=== PATIENT | female | born 1955 | race Caucasian/White ===

== ENCOUNTER 2016-10-12 13:40 | Inpatient (IN) ==
[2016-10-12 14:28] LABS: Basophils % 0.3 % (0.0-0.8); Eosinophils % 0.1 % (0.00-10.9); Hematocrit 38.1 VOL% (35.7-47.0); Hemoglobin 13.5 GM/DL (12.0-16.0); Immature Granulocytes % 0.5 %; Immature Granulocytes Absolute 0.08 #; Lymphocytes # 2.6 10*3/uL (1.4-4.0); Lymphocytes % 16.5 % (21.3-54.2); Mean Corpuscular HGB Conc 35.4 GM/DL (32-36); Mean Corpuscular Hemoglobin 30 PG (27-34); Mean Corpuscular Volume 85.2 FL (87-102); Mean Platelet Volume 10.9 FL (9.6-12.0); Monocytes # 1.3 10*3/uL (0.11-0.8); Monocytes % 8.1 % (1.7-12.7); Neutrophils # 11.7 10*3/uL (1.4-7.4); Neutrophils % 74.5 % (38.7-73.9); Platelet Count 127 T/CUMM (130-400); Red Blood Count 4.47 MC/CUMM (3.8-5.5); Red Cell Distribution Width 17.1 % (9.3-17.3); White Blood Count 15.7 T/CUMM (4-12)
[2016-10-12 14:53] LABS: Bilirubin,Total 8.5 MG/DL (0.2-1.0); Calcium 8.4 MG/DL (8.5-10.1); Total Protein 6.9 G/DL (6.4-8.3)
[2016-10-12 14:54] LABS: Albumin 2.9 G/DL (3.4-5.0); Magnesium 1.3 MG/DL (1.8-2.4); Osmolality,Calculated 264.5 MOS/KG (273-304); Potassium 3.2 MMOL/L (3.5-5.1)
[2016-10-12 15:44] LABS: Hepatitis A Ab IgM Quant < 0.02 Index; Hepatitis A Ab IgM Result Negative (Negative); Hepatitis B Core IgM Quant 0.21 Index; Hepatitis B Surface Ag Quant < 0.10 Index; Hepatitis B Surface Ag Result Negative (Negative)
[2016-10-12 15:45] LABS: Hepatitis B Core IgM Result Negative (Negative); Hepatitis C Virus Ab Quant > 11.00 Index; Hepatitis C Virus Ab Result Positive (Negative)
--- NOTE | 2016-10-12 15:54 | Emergency Department Note ---
Nilesh Young Brittany, am scribing for, and in the presence of, Brodie Talbot MD 14:06. Dahiana Young Phillip K, MD, personally performed the services described in this documentation, ascribed by Lolita Galloway in my presence, and it is both accurate and complete [id number] . Arrival - Arrival Chief Complaint: Non-Specific Stated Complaint: ABNORMAL LABS ED Nursing Triage Note: C/O BEING EVALUATED ON 10/05/16 AND TOLD THAT HAD ABNORMAL LIVER FUNCTIONS , STATES TODAY HAVING A SEVERE PANIC ATTACK AND DEPRESSION OVER HER ABNORMAL LAB WORK, RIGHT LEG FROM FOOT TO BELOW KNEE IN A CAST - PATIENT STATES SHE TRIPPED APX.1 MONTH AGO Mode of Arrival: Stretcher Limitations: No Limitations Source: Patient, RN Notes Reviewed Time Seen by Provider: 10/12/16 13:52 - History of Present Illness HPI Narrative: Ms. Benson is a 61 y/o white female presenting to the ED for further evaluation of elevated liver enzymes. Patient reports that she had lab work performed by PCP Dr. Dick about a week ago which showed elevated liver enzymes. Today she has presented after becoming increasingly anxious about these lab results and presents for further evaluation to see what the possible cause could be. Per records patient was seen here about 8 days ago and had a bilirubin of 8.1. Patient notes a history of ETOH use, denies heavy use but reports that when she did use she drank hard liquor such as Vodka every other day. Patient ceased use about a month ago and during this time she also stopped taking her Clonazepam. Patient has a cast to her RLE s/p ankle fracture about a month ago. She states that she cannot remember mechanism of fall that occurred, and then goes on to state she fell at her house. Patient has a history of severe Anxiety and panic attacks. She denies IV drug abuse. Patient has no other complaint/pain. Onset (ago): hour(s) Consistency: constant Allergies/Adverse Reactions: Allergies Allergy/AdvReac Type Severity Reaction Status Date / Time Unable to Obtain Allergy Unverified 07/04/16 19:13 Home Medications: Home Medications Medication Instructions Recorded Confirmed Type Buspirone HCl [Buspirone HCl] 10 mg PO TID 10/04/16 10/04/16 History Escitalopram [Lexapro] 10 mg PO QAM 10/04/16 10/04/16 History clonazePAM [Clonazepam] 2 mg PO BID 10/04/16 10/04/16 History Review of System - Review of System 12 point system: reviewed and no additional remarkable complaints except as stated - Review of System Constitutional: Present: as per HPI. Absent: chills, fever Eyes: Absent: vision change Head/Ears/Nose/Throat: Absent: nasal drainage, sore throat Cardiovascular: Absent: chest pain, palpitations Gastrointestinal: Absent: abdominal pain, nausea, vomiting, diarrhea, constipation Genitourinary female: Absent: dysuria, frequency, urgency Musculoskeletal: Absent: arm pain, back pain, leg pain, neck pain Skin: Absent: rash Neurological: Absent: headache Psychiatric: Absent: anxiety, depression Hematological/Lymphatic: Absent: easy bleeding, easy bruising Medical,Surgical,& Family Hx - Medical History Psychological: History of: Anxiety Disorders, Depression - Surgical History Surgical History: noncontributory - Family History Family History: noncontributory - Social History Smoking Status: Smoker, status unknown Frequency of Alcohol Use: Occasionally Type of Drug Use: None Exam Vital Signs: Vital Signs Temperature 98.8 F 10/12/16 14:45 Pulse Rate 112 H 10/12/16 15:00 Respiratory Rate 20 10/12/16 15:00 Blood Pressure 172/67 10/12/16 15:00 O2 Sat by Pulse Oximetry 98 10/12/16 15:00 - General General appearance: alert, in no apparent distress - Head Head exam: Present: atraumatic, normocephalic, normal inspection - Eye Eye exam: Present: normal appearance, PERRL, EOMI - ENT ENT exam: Present: normal exam, normal oropharynx - Neck Neck exam: Present: normal inspection, full ROM, trachea midline - Chest Chest inspection: Present: normal inspection, symmetric chest wall rise - Respiratory Respiratory exam: Present: normal lung sounds bilaterally - Cardiovascular Cardiovascular exam: Present: regular rate, normal rhythm, normal heart sounds - Abdominal Exam Abdominal exam: Present: soft, normal bowel sounds. Absent: distention, tenderness, mass (no liver enlargement) - Extremities Exam Extremities exam: Present: normal inspection - Back Exam Back exam: Present: normal inspection - Neurological Exam Neurological exam: Present: alert, oriented X3, CN II-XII intact. Absent: motor sensory deficit - Psychiatric Psychiatric exam: Present: normal affect, normal mood - Skin Skin exam: Present: warm, dry, intact, normal color Course Course Narrative: Patient discussed with the hospitalist. Results - Labs CBC & BMP: 10/12/16 14:19 10/12/16 14:19 Lab Results: I have reviewed the patients labs Labs: Laboratory Tests 10/12/16 14:19 WBC 15.7 H RBC 4.47 Hgb 13.5 Hct 38.1 MCV 85.2 L MCH 30 MCHC 35.4 RDW 17.1 Plt Count 127 L MPV 10.9 Neut % (Auto) 74.5 H Lymph % (Auto) 16.5 L Ferry % (Auto) 8.1 Eos % (Auto) 0.1 Baso % (Auto) 0.3 Neut # (Auto) 11.7 H Lymph # (Auto) 2.6 Ferry # (Auto) 1.3 H Eos # (Auto) 0.0 Baso # (Auto) 0.0 Immature Gran % 0.5 Nucleated RBC % 0.0 Immature Gran # 0.08 Nucleated RBCs # 0.00 Laboratory Tests 10/12/16 14:19 Sodium 132 L Potassium 3.2 L Chloride 95 L Carbon Dioxide 24 Anion Gap 16.2 H BUN 6 L Creatinine 0.80 GFR Calculation 86 BUN/Creatinine Ratio 7.00 Glucose 150 H Calculated Osmolality 264.5 L Calcium 8.4 L Magnesium 1.3 L Total Bilirubin 8.50 H AST 41 H ALT 72 H Alkaline Phosphatase 240 H Total Protein 6.9 Albumin 2.9 L Globulin 4.0 H Albumin/Globulin Ratio 0.7 L Lipase 141.0 Disposition Clinical Impression: Alcoholic liver disease, Hyponatremia, Hypokalemia, Probable cirrhosis Case discussed with: patient Disposition: Still a Patient Condition: Guarded Additional Instructions: Admit to the hospitalist.
[2016-10-12] MEDS ORDERED: SODIUM CHLORIDE 0.9% 1,000 ML IV STA (15:56)
[2016-10-12] MEDS ORDERED: POTASSIUM CHLORIDE 20 MEQ TABLET PO STA (15:57)
[2016-10-12] MEDS ORDERED: POTASSIUM CHLORIDE 20 MEQ TABLET PO ONE (15:58)
[2016-10-12] MEDS ORDERED: SODIUM CHLORIDE 0.9% 1,000 ML IV SCH (16:00)
[2016-10-12] MEDS ORDERED: ONDANSETRON 4 MG/2 ML VIAL ONE (16:04)
[2016-10-12] MEDS ORDERED: ONDANSETRON 4 MG/2 ML VIAL IV STA (16:08)
--- NOTE | 2016-10-12 16:14 | Hospitalist History & Physical ---
Assessment and Plan (1) Alcohol addiction Status: Acute Assessment and plan: The patient reports last drink on late last week. She is in the window frame for delirium tremens. We will start CIWA precautions and monitor. Current Visit: Yes (2) Alcoholic liver disease Status: Acute Assessment and plan: We will obtain liver ultrasound and consult GI for evaluation. Current Visit: Yes (3) Hypokalemia Status: Acute Assessment and plan: Potassium 3.2; will correct and re-check in AM. Current Visit: Yes (4) Hyponatremia Status: Resolved Assessment and plan: Sodium 132; will start IV fluids; will re-check in AM. Current Visit: Yes History of Present Illness Chief complaint: elevated liver enzymes/anxiety History of present illness: This is a very unfortunate 61 y/o white female presenting to the ED at [facility] for further evaluation of elevated liver enzymes. The patient has a medical history significant for alcohol abuse, anxiety, and depression. The patient reports that she was recently seen by her PCP, Dr. Dick. She reported that she was told that her liver enzymes were elevated during that visit. The patient was recently seen her on 10/04 seeking assistance with alcohol detoxification. At that time, the patient had been recently released from [place] for alcohol abuse. Labs were obtained; which revealed hepatic abnormalities with a bilirubin noted at 8.1. She was advised to refrain from drinking at time. Today, she presented back to the ED verbalizing concerns regarding her liver enzymes. She presented anxious and tremulous. She reported her last drink to Dr. Talbot on last month; however disclosed to me that her last drink was on last week. Labs were obtained which were significant for leukocytosis with a white blood cell count at 15.7, hyponatremia with a sodium of 132, hypokalemia with a sodium of 3.2, hypomagnesmia with a magnesium of 1.3. Hepatic function panel was obtained which reported an AST of 41, ALT of 72, alkaline phosphatase of 240, and total bilirubin of 8.5. After brief discussion with both Dr. Talbot and , the patient will be admitted to the hospitalist services for continuation of care. Home Medications Medication Instructions Recorded Confirmed Type Buspirone HCl [Buspirone HCl] 10 mg PO TID 10/04/16 10/04/16 History Escitalopram [Lexapro] 10 mg PO QAM 10/04/16 10/04/16 History clonazePAM [Clonazepam] 2 mg PO BID 10/04/16 10/04/16 History Allergies Allergy/AdvReac Type Severity Reaction Status Date / Time Unable to Obtain Allergy Unverified 07/04/16 19:13 Medical,Surgical,& Family Hx - Medical History Psychological: History of: Anxiety Disorders, Depression - Social History Smoking Status: Smoker, status unknown Frequency of Alcohol Use: Occasionally Type of Drug Use: None Exam - Constitutional Vitals: Period Temp Pulse Resp BP Sys/Puga Pulse Ox Last 24 Hr 98.8 F-98.8 F 94-120 20-20 172-194/67-104 98-100 General appearance: mild distress - Head Head exam: Present: normal inspection, normocephalic, atraumatic - Eye Eye exam: Present: EOMI, conjunctival injection. Absent: nystagmus Pupils: Present: TOBIN, normal accommodation - ENT ENT exam: Present: normal exam, normal external ear exam, normal oropharynx - Neck Neck exam: Present: normal inspection. Absent: lymphadenopathy, meningismus, thyromegaly - Respiratory Respiratory exam: Present: clear to auscultation bilaterally. Absent: rales, rhonchi, stridor, wheezes - Cardiovascular Cardiovascular exam: Present: regular rate and rhythm. Absent: carotid bruit, diastolic murmur, gallop, JVD, rubs, systolic murmur - GI/Abdominal GI/Abdominal exam: Present: normal bowel sounds, soft - Extremities Exam Extremities exam: Present: other (cast to right lower leg) - Back Exam Back exam: Present: normal inspection - Neurological Exam Neurological exam: Present: alert, oriented X3 - Psychiatric Psychiatric exam: Present: agitated, anxious - Skin Skin exam: Present: normal color, warm, dry Results - Labs CBC & BMP: 10/12/16 14:19 10/12/16 14:19 Lab Results: I have reviewed the past 24 hour labs
[2016-10-12] MEDS ORDERED: ONDANSETRON 4 MG/2 ML VIAL IV PRN (17:16)
[2016-10-12] MEDS: SODIUM CHLORIDE 0.9% 1,000 ML IV SCH (17:41)
[2016-10-12] MEDS: LORazepam 1 MG TABLET PO PRN (18:24)
[2016-10-12] MEDS: POTASSIUM CHLORIDE 20 MEQ TABLET PO SCH ×2 (18:24→21:45)
[2016-10-12] MEDS: ENOXAPARIN 40 MG/0.4 ML SYRINGE SUBCUT SCH (18:38)
[2016-10-12] MEDS: clonazePAM 0.5 MG TABLET PO SCH (21:45)
[2016-10-13] MEDS: LORazepam 1 MG TABLET PO PRN ×3 (02:07→22:30)
[2016-10-13] MEDS: POTASSIUM CHLORIDE 20 MEQ TABLET PO SCH (02:07)
[2016-10-13 06:45] LABS: Albumin 2.4 G/DL (3.4-5.0); Bilirubin,Total 6.3 MG/DL (0.2-1.0); Magnesium 1.8 MG/DL (1.8-2.4); Osmolality,Calculated 275.5 MOS/KG (273-304); Potassium 4.6 MMOL/L (3.5-5.1); Total Protein 5.6 G/DL (6.4-8.3)
[2016-10-13 07:11] LABS: Basophils # 0.1 10*3/uL (0.0-0.2); Basophils % 0.5 % (0.0-0.8); Eosinophils % 0.4 % (0.00-10.9); Hematocrit 33.7 VOL% (35.7-47.0); Hemoglobin 11.4 GM/DL (12.0-16.0); Immature Granulocytes % 0.2 %; Immature Granulocytes Absolute 0.02 #; Lymphocytes # 4.9 10*3/uL (1.4-4.0); Lymphocytes % 49.4 % (21.3-54.2); Mean Corpuscular HGB Conc 33.8 GM/DL (32-36); Mean Corpuscular Hemoglobin 30 PG (27-34); Mean Corpuscular Volume 88.7 FL (87-102); Mean Platelet Volume 11.5 FL (9.6-12.0); Monocytes % 9.7 % (1.7-12.7); Neutrophils % 39.8 % (38.7-73.9); Red Cell Distribution Width 18.3 % (9.3-17.3)
[2016-10-13 07:19] LABS: Platelet Count 85 T/CUMM (130-400)
[2016-10-13 07:46] LABS: Hypochromasia 1+
[2016-10-13 07:47] LABS: Platelet Estimate Decreased
--- NOTE | 2016-10-13 08:46 | Gastrointestinal Consult Note ---
<Funmilayo Wells - Last Filed: 10/13/16 08:42> Assessment and Plan (1) Elevated liver enzymes Status: Acute Assessment and plan: 10/13-Recent findings of elevated LFT with findings of Hepatitis C antibodies. Long history of ETOH use without any other associated symptoms. Obtain abdominal US today. Plan and addendum to follow by Dr Diane. Current Visit: Yes History of Present Illness Chief complaint: Elevated liver enzymes History of present illness: Ms. Benson is a 61 year old female who presented to the emergency room with complaints of anxiety related to findings of elevated liver enzymes on last week. Patient is a fair historian therefore information is also obtained from chart review. Patient states that she went to see Dr. Dick last week for an evaluation due to not feeling well. She states that that time she was found to have elevated liver enzymes and told that she was positive for hepatitis C. she states she was then told to follow-up with a specialist and sent home. Patient has a long history of alcohol use. She states that she has drank heavily off and on for many years however would not determine the exact number of years she has drank. She initially reported that her last drink was a month ago however she also reports that her last drink was several days ago. She is noted to have come to the emergency room on 10/04 with request for assistance with detox. She apparently have been discharged from [facility] on September 11 after inpatient stay for alcohol abuse however states that shortly after this she began drinking again. She denies any history of IV drug use or other illicit drugs. She denies any recent fever, chills, night sweats, weight loss, abdominal pain. She states that she does have some episodes of nausea but denies any vomiting. She denies any notice of yellowing of her skin, eyes, or darkened urine recently. She was found on admission to have a bilirubin of 8.5 , AST 41, ALT 72 and alkaline phosphatase 240. Bilirubin is down today at 6.3. She is noted to be positive for hepatitis C antibodies. Ammonia level noted at 42. No overt signs of DTs noted at this time. Home Medications Medication Instructions Recorded Confirmed Type Escitalopram [Lexapro] 10 mg PO QAM 10/04/16 10/12/16 History Allergies Allergy/AdvReac Type Severity Reaction Status Date / Time No Known Allergies Allergy Verified 10/12/16 17:33 Medical,Surgical,& Family Hx - Medical History Psychological: History of: Anxiety Disorders, Depression Musculoskeletal: History of: Musculoskeletal Problems (splint noted on right foot up to the knee) - Social History Smoking Status: Smoker, status unknown Frequency of Alcohol Use: Occasionally Type of Drug Use: None 12 point system: reviewed and no additional remarkable complaints except as stated - Constitutional Constitutional: Present: as per HPI - EENT Eyes: Present: as per HPI Ears: Present: as per HPI Nose, mouth and throat: Present: as per HPI - Cardiovascular Cardiovascular: Present: as per HPI - Respiratory Respiratory: Present: as per HPI - Gastrointestinal Gastrointestinal: Present: as per HPI, nausea - Genitourinary Genitourinary: Present: as per HPI - Musculoskeletal Musculoskeletal: Present: as per HPI - Neurological Neurological: Present: as per HPI - Psychiatric Psychiatric: Present: as per HPI, anxiety, panic attacks, other (History of EtOH use) - Endocrine Endocrine: Present: as per HPI - Hematologic/Lymphatic Hematologic/Lymphatic: Present: as per HPI Exam - Constitutional Vitals: Period Temp Pulse Resp BP Sys/Puga Pulse Ox Last 24 Hr 98.4 F-98.9 F 73-120 20-20 103-194/54-104 94-100 General appearance: no acute distress, over weight - Head Head exam: Present: normal inspection, normocephalic - Eye Eye exam: Present: other (Lids and conjunctive are unremarkable). Absent: scleral icterus - ENT ENT exam: Present: normal exam, normal oropharynx - Neck Neck exam: Present: normal inspection - Respiratory Respiratory exam: Present: clear to auscultation bilaterally. Absent: rales, rhonchi, wheezes - Cardiovascular Cardiovascular exam: Present: regular rate and rhythm. Absent: diastolic murmur , JVD, systolic murmur - GI/Abdominal GI/Abdominal exam: Present: normal bowel sounds, soft. Absent: ascites, distended, mass, organomegaly, tenderness - Extremities Exam Extremities exam: Present: normal inspection, full ROM - Back Exam Back exam: Present: normal inspection - Neurological Exam Neurological exam: Present: alert, oriented X3 - Psychiatric Psychiatric exam: Present: normal affect, normal mood - Skin Skin exam: Present: normal color, warm, dry Results - Labs CBC & BMP: 10/13/16 06:54 10/13/16 04:22 Lab Results: I have reviewed the past 24 hour labs <Dean Diane - Last Filed: 10/13/16 19:06> History of Present Illness History of present illness: Ms. Benson is a 61 year old female Exam - Constitutional Vitals: Period Temp Pulse Resp BP Sys/Puga Pulse Ox Last 24 Hr 97.9 F-99.2 F 70-105 20-20 103-156/54-78 94-99 Results - Labs CBC & BMP: 10/13/16 06:54 10/13/16 04:22
[2016-10-13] MEDS ORDERED: PANTOPRAZOLE 40 MG TABLET PO SCH (09:00)
--- NOTE | 2016-10-13 09:27 | Hospitalist Progress Note ---
Assessment and Plan (1) Alcohol addiction Status: Acute Assessment and plan: The patient reports last drink on late last week. She is in the window frame for delirium tremens. We will start CIWA precautions and monitor. 10/13-No overt signs and symptoms; will continue to monitor. Current Visit: Yes (2) Alcoholic liver disease Status: Acute Assessment and plan: We will obtain liver ultrasound and consult GI for evaluation. 10/13-Seen per GI; agree with plan of u/s abdomen. Current Visit: Yes (3) Hypokalemia Status: Acute Assessment and plan: Potassium 3.2; will correct and re-check in AM. 10/13-Potassium at 3.5 today; will re-check in AM. Current Visit: Yes (4) Hyponatremia Status: Resolved Assessment and plan: Sodium 132; will start IV fluids; will re-check in AM. 10/14-Sodium 135 today; will re-check in AM. Current Visit: Yes (5) HCV antibody positive Status: Acute Assessment and plan: Patient informed of findings; will obtain HCV RNA today. Current Visit: Yes (6) Decreased platelet count Status: Acute Assessment and plan: Platelet count decreased dramatically since admission 85 today down from 127 on yesterday. No obvious bleeding noted. Will monitor. This is likely related to her impaired hepatic functioning. Current Visit: Yes (7) Elevated liver enzymes Status: Acute Assessment and plan: Noted improvement in LFT's; AST at 33 down from 41, ALT at 48 down from 72, Alkaline Phosphatate at 140 from 240, and total bilirubin at 6.3 from 8.5 on yesterday. Ammonia level was obtained which was noted at 42. We will continue to monitor. Current Visit: Yes (8) Ankle fracture, right Status: Acute Assessment and plan: Patient was seen her for this right ankle fracture, a cast was applied; however the patient did not follow-up with her ortho follow-up. We will consult ortho to evaluate. Current Visit: Yes Hospitalist: Subjective Interval history: Patient seen and examined. Chart reviewed. Labs reported +HCV antibody; patient informed. Will obtain HCV RNA this morning. Seen by GI; abdominal ultrasound this AM. Exam - Constitutional Vitals: Period Temp Pulse Resp BP Sys/Puga Pulse Ox Last 24 Hr 98.4 F-98.9 F 73-120 20-20 103-194/54-104 94-100 General appearance: normal weight, no acute distress - Head Head exam: Present: normal inspection, normocephalic, atraumatic - Eye Eye exam: Present: EOMI. Absent: conjunctival injection, nystagmus Pupils: Present: TOBIN, normal accommodation - ENT ENT exam: Present: normal exam, normal external ear exam, normal oropharynx - Neck Neck exam: Present: normal inspection. Absent: lymphadenopathy, meningismus, tenderness, thyromegaly - Respiratory Respiratory exam: Present: clear to auscultation bilaterally. Absent: rales, rhonchi, stridor, wheezes - Cardiovascular Cardiovascular exam: Present: regular rate and rhythm, systolic murmur. Absent : bradycardia, carotid bruit, diastolic murmur, gallop, JVD, rubs, tachycardia - GI/Abdominal GI/Abdominal exam: Present: normal bowel sounds, soft - Extremities Exam Extremities exam: Present: other (cast to R foot noted; pulses noted) - Back Exam Back exam: Present: normal inspection - Neurological Exam Neurological exam: Present: alert, oriented X3 - Psychiatric Psychiatric exam: Present: flat affect - Skin Skin exam: Present: dry, other (jaundice) Results - Labs CBC & BMP: 10/13/16 06:54 10/13/16 04:22 Lab Results: I have reviewed the past 24 hour labs
[2016-10-13 10:29] LABS: HIV Antigen/Antibody Result Nonreactive (Nonreactive)
[2016-10-13] MEDS: clonazePAM 0.5 MG TABLET PO SCH ×2 (10:47→20:19)
[2016-10-13] MEDS: ESCITALOPRAM 10 MG TABLET PO SCH (10:47)
[2016-10-13] MEDS: SODIUM CHLORIDE 0.9% 1,000 ML IV SCH (10:50)
--- NOTE | 2016-10-13 11:01 | Ultrasound Report ---
US abdomen Indication: Elevated liver function studies. History of ethanol abuse. Comparison: None. Technique: Using transcutaneous probe, ultrasound imaging of the abdomen was performed. Ultrasound images were captured and stored. Interrogated structures include the liver, gallbladder, spleen, pancreas, right kidney, left kidney, aorta, and inferior vena cava. Findings: Images submitted of the pancreas demonstrate heterogeneous echotexture of the pancreas without evidence of ductal dilatation or distinct pancreatic mass. No peripancreatic fluid collection is demonstrated. Longitudinal images of the aorta and inferior vena cava demonstrate no significant abnormality. The right hepatic lobe measures up to 17-18 cm in craniocaudal dimension. Images submitted of the liver demonstrate no evidence of focal hepatic mass. Color flow is present within the interrogated portal and hepatic venous segments. Echotexture of the liver is heterogeneous in appearance. Margins may be slightly nodular. Gallbladder demonstrates increased echotexture layering dependently suggesting sludge. The gallbladder wall measures approximately 2.5 to 3 mm. No pericholecystic fluid is present. Additionally present within the gallbladder neck, there are some hyperechoic foci with posterior shadowing suggesting gallstones within the neck of the gallbladder. Common bile duct measures 4.3 mm. The right kidney measures 10.4 cm in craniocaudal dimension and otherwise demonstrates no significant abnormality. The left kidney measures 11.2 cm in craniocaudal dimension and is otherwise unremarkable. Spleen is normal in size and appearance. Impression: 1. Multiple calcified gallstones and gallbladder sludge are present. The gallbladder wall is borderline in thickness. 2. No specific abnormality of the liver is demonstrated. Additionally no specific findings to suggest portal venous hypertension. 10/13/2016 10:55 AM PROCEDURE INTERPRETED AT [facility] DEPARTMENT OF RADIOLOGY Final Report Signed by: Dr. Gregorio Galvez
--- NOTE | 2016-10-13 13:47 | XRay Report ---
XR ankle 3V RT Indication: Recent fracture, follow-up Comparison: Right ankle x-ray dated September 04, 2016 Technique: Frontal, lateral, and oblique views of the right ankle. Findings: Redemonstration of minimally displaced fracture involving the distal fibular diametaphysis. This appears unchanged. Fracture line remains visible with no significant callus formation demonstrated. Overlying splinting material obscures detail. Moderate soft tissue swelling about the lateral malleolus noted. IMPRESSION: As above. PROCEDURE INTERPRETED AT [facility] DEPARTMENT OF RADIOLOGY Final Report Signed by: Dr Dixon Swenson
[2016-10-13] MEDS: ENOXAPARIN 40 MG/0.4 ML SYRINGE SUBCUT SCH (17:10)
[2016-10-13 18:23] LABS: INR 1.3; PT Patient Result 14.2 SECS
[2016-10-14] MEDS: SODIUM CHLORIDE 0.9% 1,000 ML IV SCH ×2 (04:28→20:11)
[2016-10-14] MEDS: LORazepam 2 MG/1 ML VIAL IM PRN ×3 (04:29→22:36)
[2016-10-14 05:21] LABS: Basophils # 0.1 10*3/uL (0.0-0.2); Basophils % 0.7 % (0.0-0.8); Eosinophils # 0.1 10*3/uL (0.0-0.87); Eosinophils % 0.9 % (0.00-10.9); Hematocrit 33.2 VOL% (35.7-47.0); Hemoglobin 10.7 GM/DL (12.0-16.0); Immature Granulocytes % 0.3 %; Immature Granulocytes Absolute 0.02 #; Lymphocytes # 4.2 10*3/uL (1.4-4.0); Lymphocytes % 59.8 % (21.3-54.2); Mean Corpuscular HGB Conc 32.2 GM/DL (32-36); Mean Corpuscular Hemoglobin 30 PG (27-34); Mean Corpuscular Volume 92.7 FL (87-102); Monocytes # 0.4 10*3/uL (0.11-0.8); Monocytes % 5.9 % (1.7-12.7); Neutrophils # 2.3 10*3/uL (1.4-7.4); Neutrophils % 32.4 % (38.7-73.9); Platelet Count 86 T/CUMM (130-400); Red Blood Count 3.58 MC/CUMM (3.8-5.5); Red Cell Distribution Width 18.7 % (9.3-17.3)
[2016-10-14 05:53] LABS: Albumin 2.5 G/DL (3.4-5.0); Bilirubin,Total 4.8 MG/DL (0.2-1.0); Calcium 8.3 MG/DL (8.5-10.1); Magnesium 1.9 MG/DL (1.8-2.4); Osmolality,Calculated 276.4 MOS/KG (273-304); Phosphorous 2.2 MG/DL (2.5-4.9); Potassium 4.1 MMOL/L (3.5-5.1); Total Protein 5.7 G/DL (6.4-8.3)
[2016-10-14 05:54] LABS: Eosinophils 1 % (0-10); Hypochromasia 1+; Lymphocytes 53 % (20-55); Platelet Estimate Decreased; Segmented Neutrophils 40 % (50-85); Total Cells Counted 100
[2016-10-14] MEDS ORDERED: SODIUM CHLORIDE 0.45% 1,000 ML IV SCH (08:00)
[2016-10-14] MEDS ORDERED: DIAZEPAM 5 MG TABLET PO ONE (08:00)
--- NOTE | 2016-10-14 08:47 | Gastrointestinal Progress Note ---
<Funmilayo Wells Venkat - Last Filed: 10/14/16 08:45> Assessment and Plan (1) Elevated liver enzymes Status: Acute Assessment and plan: 10/14-bilirubin down at 4.8. For liver biopsy today. PCR pending. Plan an addendum to follow by Dr. Diane. 10/13-Recent findings of elevated LFT with findings of Hepatitis C antibodies. Long history of ETOH use without any other associated symptoms. Obtain abdominal US today. Plan and addendum to follow by Dr Diane. Current Visit: Yes Gastroenterology - PN: Subj Interval history: CC: Elevated liver enzymes Patient is seen awake and alert lying in bed. States she had a difficult night with some off-and-on episodes of upper abdominal pain. Denies any nausea or vomiting. No DT symptoms noted at present and patient denies any hallucinations. Abdomen is soft, nontender. Bilirubin is down slightly today at 4.8. She is for liver biopsy later this morning. ROS: Denies shortness of breath or chest pain Exam (Progress Note) - Constitutional Vitals: Period Temp Pulse Resp BP Sys/Puga Pulse Ox Last 24 Hr 97.6 F-99.2 F 65-82 16-20 115-143/60-78 96-99 General appearance: normal weight, no acute distress - Head Head exam: Present: normal inspection, normocephalic - Eye Eye exam: Present: other (Lids and conjunctive are unremarkable). Absent: scleral icterus - ENT ENT exam: Present: normal exam, normal oropharynx - Neck Neck exam: Present: normal inspection - Respiratory Respiratory exam: Present: clear to auscultation bilaterally. Absent: rales, rhonchi, wheezes - Cardiovascular Cardiovascular exam: Present: regular rate and rhythm. Absent: diastolic murmur , JVD, systolic murmur - GI/Abdominal GI/Abdominal exam: Present: normal bowel sounds, soft. Absent: ascites, distended, mass, organomegaly, tenderness - Extremities Exam Extremities exam: Present: normal inspection, full ROM - Back Exam Back exam: Present: normal inspection - Neurological Exam Neurological exam: Present: alert, oriented X3 - Psychiatric Psychiatric exam: Present: normal affect, normal mood - Skin Skin exam: Present: normal color, warm, dry Results - Labs CBC & BMP: 10/14/16 04:52 10/14/16 04:52 Lab Results: I have reviewed the past 24 hour labs <Dean Diane - Last Filed: 10/14/16 22:34> Exam (Progress Note) - Constitutional Vitals: Period Temp Pulse Resp BP Sys/Puga Pulse Ox Last 24 Hr 97.6 F-99.2 F 65-77 16-20 130-145/60-72 95-98 Results - Labs CBC & BMP: 10/14/16 04:52 10/14/16 04:52
--- NOTE | 2016-10-14 10:45 | Orthopedic Consult Note ---
History of Present Illness Chief complaint: Right ankle fracture History of present illness: Ms. Benson is a 61 year old female See dictated reports Home Medications Medication Instructions Recorded Confirmed Type Escitalopram [Lexapro] 10 mg PO QAM 10/04/16 10/12/16 History Allergies Allergy/AdvReac Type Severity Reaction Status Date / Time No Known Allergies Allergy Verified 10/12/16 17:33 Medical,Surgical,& Family Hx - Medical History Psychological: History of: Anxiety Disorders, Depression Musculoskeletal: History of: Musculoskeletal Problems (splint noted on right foot up to the knee) - Social History Smoking Status: Smoker, status unknown Frequency of Alcohol Use: Occasionally Type of Drug Use: None Exam - Constitutional Vitals: Period Temp Pulse Resp BP Sys/Puga Pulse Ox Last 24 Hr 97.6 F-99.2 F 65-82 16-20 115-145/60-78 96-99 Results - Labs CBC & BMP: 10/14/16 04:52 10/14/16 04:52
[2016-10-14] MEDS: NYSTATIN POWDER 15 GM BOTTLE TOP SCH ×3 (10:59→20:13)
[2016-10-14] MEDS: ESCITALOPRAM 10 MG TABLET PO SCH ×2 (10:59→15:19)
[2016-10-14] MEDS: clonazePAM 0.5 MG TABLET PO SCH ×3 (10:59→20:11)
--- NOTE | 2016-10-14 17:15 | Hospitalist Progress Note ---
Assessment and Plan (1) Alcoholic liver disease Status: Acute Current Visit: Yes (2) HCV antibody positive Status: Acute Assessment and plan: Follow-up liver biopsy. Current Visit: Yes (3) Ankle fracture, right Status: Acute Assessment and plan: Patient seen by orthopedics. See consult note. Current Visit: Yes Hospitalist: Subjective Interval history: Patient seen and examined. No acute events overnight. Case discussed with nursing staff. Labs reviewed. Case discussed with GI. Scheduled for liver biopsy today. Exam - Constitutional Vitals: Period Temp Pulse Resp BP Sys/Puga Pulse Ox Last 24 Hr 97.6 F-99.2 F 65-80 16-20 115-145/60-72 95-98 Exam: Constitutional System: Mild distress. No tremulousness. Notably anxious Head: Normocephalic, atraumatic. Ears, Nose and Throat System: No pain or tenderness. No epistaxis or discharge Eyes System: Pupils equal, round, and reactive. Extraocular muscles intact. Neck: Supple, without adenopathy, No jugular venous distention. Respiratory System: Chest clear to auscultation. Cardiovascular System: Heart with regular rate and rhythm. No murmur. GI System: Abdomen soft, nontender. Normo active bowel sounds present. Musculoskeletal System: limbs with no pedal edema. Full distal pulses. Neurological System: No discernable sensory deficit. No aphasia Psychiatric System: Conversation is rational Results - Labs CBC & BMP: 10/14/16 04:52 10/14/16 04:52
[2016-10-14] MEDS: ENOXAPARIN 40 MG/0.4 ML SYRINGE SUBCUT SCH (18:04)
--- NOTE | 2016-10-14 18:35 | Inventional Radiology Consult ---
Assessment and Plan - Time spent with patient Time spent with patient: Less than 30 minutes (1) Alcoholic liver disease Problem details: long standing, no issues with DTs this admission Status: Acute Assessment and plan: plan for liver biopsy tomorrow Current Visit: Yes (2) HCV antibody positive Problem details: new diagnosis Status: Acute Assessment and plan: plan for liver biopsy tomorrow Current Visit: Yes IR Consult - Data of Consult Patient: new to practice Consult date: 10/14/16 Requesting Physician: Dean Diane - Consult Narrative Reason for consult: probable hepatitis C and elevated bilirubin History of present illness: Kelley is a 61 year old F With long-standing history of alcoholic liver disease and probable hepatitis C. - Home Medications and Allergies Home Medications: Home Medications Medication Instructions Recorded Confirmed Type Escitalopram [Lexapro] 10 mg PO QAM 10/04/16 10/12/16 History Allergies/Adverse Reactions: Allergies Allergy/AdvReac Type Severity Reaction Status Date / Time No Known Allergies Allergy Verified 10/12/16 17:33 12 point system: reviewed and no additional remarkable complaints except as stated Medical,Surgical,& Family Hx - Medical History Psychological: History of: Anxiety Disorders, Depression Musculoskeletal: History of: Musculoskeletal Problems (splint noted on right foot up to the knee) - Social History Smoking Status: Smoker, status unknown Frequency of Alcohol Use: Occasionally Type of Drug Use: None Exam - Labs CBC & BMP: 10/14/16 04:52 10/14/16 04:52 Lab Results: I have reviewed the past 24 hour labs Labs: INR 1.3 10/13/16 17:57 Image Studies: u/s liver - Constitutional Vitals: Period Temp Pulse Resp BP Sys/Puga Pulse Ox Last 24 Hr 97.6 F-99.2 F 65-80 16-20 115-145/60-72 95-98 General appearance: over weight - Eye Eye exam: Present: EOMI - Respiratory Respiratory exam: Present: clear to auscultation bilaterally - Cardiovascular Cardiovascular exam: Present: regular rate and rhythm - GI/Abdominal GI/Abdominal exam: Present: normal bowel sounds - Neurological Exam Neurological exam: Present: alert - Psychiatric Psychiatric exam: Present: anxious, flat affect - Skin Skin exam: Present: normal color, dry
[2016-10-14] MEDS: LORazepam 1 MG TABLET PO PRN (20:11)
[2016-10-15] MEDS: LORazepam 2 MG/1 ML VIAL IM PRN (04:27)
[2016-10-15] MEDS ORDERED: SODIUM CHLORIDE 0.45% 1,000 ML IV SCH (08:00)
[2016-10-15] MEDS ORDERED: DIAZEPAM 5 MG TABLET PO ONE ×2 (08:00)
--- NOTE | 2016-10-15 08:19 | Gastrointestinal Progress Note ---
<PriscillaFunmilayo Venkat - Last Filed: 10/15/16 08:16> Assessment and Plan (1) Elevated liver enzymes Status: Acute Assessment and plan: 10/15-No repeat labs today. For liver biopsy today. Plan and addendum to follow by Dr Diane. 10/14-bilirubin down at 4.8. For liver biopsy today. PCR pending. Plan an addendum to follow by Dr. Diane. 10/13-Recent findings of elevated LFT with findings of Hepatitis C antibodies. Long history of ETOH use without any other associated symptoms. Obtain abdominal US today. Plan and addendum to follow by Dr Diane. Current Visit: Yes Gastroenterology - PN: Subj Interval history: CC: Elevated LFT Pt is seen, awake and alert lying in bed. She is tearful this morning stating she is just depressed and has a great deal of anxiety. States she did not sleep well last night due to her "nerves" and up and down to the bathroom. She complains of some vague RUQ abdominal pain as well. Denies nausea or vomiting. Abdomen is soft, tender to palpation. She is to have liver biopsy today which was postponed on yesterday due to scheduling issues. ROS: Denies SOB or chest pain Exam (Progress Note) - Constitutional Vitals: Period Temp Pulse Resp BP Sys/Puga Pulse Ox Last 24 Hr 98.0 F-100.3 F 68-71 16-20 120-152/68-80 95-99 General appearance: normal weight, no acute distress - Head Head exam: Present: normal inspection, normocephalic - Eye Eye exam: Present: other (lids and conjunctiva unremarkable). Absent: scleral icterus - ENT ENT exam: Present: normal exam, normal oropharynx - Neck Neck exam: Present: normal inspection - Respiratory Respiratory exam: Present: clear to auscultation bilaterally. Absent: rales, rhonchi, wheezes - Cardiovascular Cardiovascular exam: Present: regular rate and rhythm. Absent: diastolic murmur , JVD, systolic murmur - GI/Abdominal GI/Abdominal exam: Present: normal bowel sounds, soft. Absent: ascites, distended, mass, organomegaly, tenderness - Extremities Exam Extremities exam: Present: normal inspection, full ROM - Back Exam Back exam: Present: normal inspection - Neurological Exam Neurological exam: Present: alert, oriented X3 - Psychiatric Psychiatric exam: Present: anxious, depressed - Skin Skin exam: Present: normal color, warm, dry Results - Labs CBC & BMP: 10/14/16 04:52 10/14/16 04:52 Lab Results: I have reviewed the past 24 hour labs <Dean Diane - Last Filed: 10/15/16 19:19> Exam (Progress Note) - Constitutional Vitals: Period Temp Pulse Resp BP Sys/Puga Pulse Ox Last 24 Hr 98.2 F-100.3 F 50-79 16-22 119-158/57-80 95-100 Results - Labs CBC & BMP: 10/14/16 04:52 10/14/16 04:52
--- NOTE | 2016-10-15 08:50 | Orthopedic Progress Note ---
Orthopedics - Subjective Interval history: AFO in place no problems discharge instructions ordered. Exam - Constitutional Vitals: Period Temp Pulse Resp BP Sys/Puga Pulse Ox Last 24 Hr 98.0 F-100.3 F 68-71 16-20 120-152/68-80 95-99 Results - Labs CBC & BMP: 10/14/16 04:52 10/14/16 04:52
[2016-10-15] MEDS: clonazePAM 0.5 MG TABLET PO SCH ×2 (09:55→20:11)
[2016-10-15] MEDS: ESCITALOPRAM 10 MG TABLET PO SCH (09:55)
[2016-10-15] MEDS: NYSTATIN POWDER 15 GM BOTTLE TOP SCH ×3 (10:00→20:13)
[2016-10-15] MEDS: SODIUM CHLORIDE 0.9% 1,000 ML IV SCH (11:56)
--- NOTE | 2016-10-15 14:13 | Hospitalist Progress Note ---
Assessment and Plan (1) Alcoholic liver disease Problem details: long standing, no issues with DTs this admission Status: Acute Current Visit: Yes (2) HCV antibody positive Problem details: new diagnosis Status: Acute Current Visit: Yes (3) Ankle fracture, right Status: Acute Assessment and plan: Patient is status post liver biopsy today. I am going to check recheck her labs for tomorrow. The results of her biopsy can be related to her primary care provider. There is no reason for her to follow up with Dr. Diane. Plans are for disposition tomorrow. Current Visit: Yes Hospitalist: Subjective Interval history: Patient complaining of all over pain, depression and anxiety. Exam - Constitutional Vitals: Period Temp Pulse Resp BP Sys/Puga Pulse Ox Last 24 Hr 98.0 F-100.3 F 50-71 16-22 119-158/62-80 95-100 General appearance: over weight - Head Head exam: Present: normal inspection - ENT ENT exam: Present: normal exam - Neck Neck exam: Present: normal inspection - Respiratory Respiratory exam: Present: clear to auscultation bilaterally - Cardiovascular Cardiovascular exam: Present: regular rate and rhythm - GI/Abdominal GI/Abdominal exam: Present: hypoactive bowel sounds - Extremities Exam Extremities exam: Present: normal inspection - Back Exam Back exam: Present: normal inspection - Neurological Exam Neurological exam: Present: alert - Psychiatric Psychiatric exam: Present: depressed - Skin Skin exam: Present: normal color Results - Labs CBC & BMP: 10/14/16 04:52 10/14/16 04:52
--- NOTE | 2016-10-15 14:31 | Post Interventional Procedure ---
Pre-op diagnosis: HCV Post-op diagnosis: same Procedure: random liver biopsy Contrast: none Flouroscopy: none Radiologist: Ministerio Morris Anesthesia: local Specimens: other (three 20 ga core samples sent for path analysis) Estimated blood loss: none Complications: none Condition: stable Description/Findings: Medial right lobe of the liver was targeted for biopsy with ultrasound guidance. 3 total core samples were obtained with a 20-gauge needle. Patient tolerated the procedure well and left the procedure area in stable condition. Assessment and Plan - Time spent with patient Time spent with patient: Less than 30 minutes (1) Alcoholic liver disease Problem details: long standing, no issues with DTs this admission Status: Acute Assessment and plan: plan for liver biopsy tomorrow Current Visit: Yes (2) HCV antibody positive Problem details: new diagnosis Status: Acute Assessment and plan: plan for liver biopsy tomorrow Current Visit: Yes
--- NOTE | 2016-10-15 14:34 | Ultrasound Report ---
Ultrasound-guided liver biopsy Clinical history: History of HCV liver disease, needs staging. Physician: Dr. Morris. Procedure: Informed consent was obtained prior to the procedure. A formal timeout was performed. Maximum sterile barrier technique was used. The right lobe of the liver was examined with ultrasound and no focal hepatic lesions are identified. Therefore, a random biopsy was performed. The right upper quadrant of the abdomen was prepped and draped in a sterile fashion. Under sonographic guidance, a coaxial guide needle was advanced into the right lobe of the liver. A captured sonographic image documents the needle position within the liver. Multiple 20-gauge core biopsies were then obtained. The needle was removed and final ultrasound images showed no significant hematoma. Scant hemorrhage is noted along the biopsy tract within the liver parenchyma, as expected. The patient tolerated the procedure well and left the procedure area in stable condition. Complications: None. Estimated blood loss: Less than 5 mL. Impression: Technically successful ultrasound guided random liver biopsy. PROCEDURE INTERPRETED AT [facility] DEPARTMENT OF RADIOLOGY Final Report Signed by: Ministerio Morris
[2016-10-15] MEDS: LORazepam 1 MG TABLET PO PRN ×2 (16:48→23:11)
[2016-10-15] MEDS: ENOXAPARIN 40 MG/0.4 ML SYRINGE SUBCUT SCH (18:12)
[2016-10-16] MEDS: LORazepam 1 MG TABLET PO PRN ×4 (02:41→16:46)
[2016-10-16] MEDS: SODIUM CHLORIDE 0.9% 1,000 ML IV SCH (04:20)
[2016-10-16 05:42] LABS: Basophils % 0.7 % (0.0-0.8); Eosinophils # 0.1 10*3/uL (0.0-0.87); Eosinophils % 0.9 % (0.00-10.9); Hematocrit 33.4 VOL% (35.7-47.0); Hemoglobin 10.9 GM/DL (12.0-16.0); Immature Granulocytes % 0.2 %; Immature Granulocytes Absolute 0.01 #; Lymphocytes # 3.2 10*3/uL (1.4-4.0); Lymphocytes % 54.8 % (21.3-54.2); Mean Corpuscular HGB Conc 32.6 GM/DL (32-36); Mean Corpuscular Hemoglobin 30 PG (27-34); Mean Corpuscular Volume 92.8 FL (87-102); Mean Platelet Volume 12.1 FL (9.6-12.0); Monocytes # 0.4 10*3/uL (0.11-0.8); Monocytes % 7.5 % (1.7-12.7); Neutrophils # 2.1 10*3/uL (1.4-7.4); Neutrophils % 35.9 % (38.7-73.9); Red Cell Distribution Width 18.6 % (9.3-17.3); White Blood Count 5.9 T/CUMM (4-12)
[2016-10-16 05:44] LABS: Platelet Count 83 T/CUMM (130-400)
[2016-10-16 06:11] LABS: Eosinophils 3 % (0-10); Hypochromasia 1+; Lymphocytes 45 % (20-55); Ovalocytes Slight; Platelet Estimate Decreased; Segmented Neutrophils 42 % (50-85); Total Cells Counted 100
[2016-10-16 06:13] LABS: Albumin 2.4 G/DL (3.4-5.0); Bilirubin,Total 2.9 MG/DL (0.2-1.0); Calcium 8.1 MG/DL (8.5-10.1); Osmolality,Calculated 281.1 MOS/KG (273-304); Potassium 4.1 MMOL/L (3.5-5.1); Total Protein 5.8 G/DL (6.4-8.3)
[2016-10-16] MEDS: NYSTATIN POWDER 15 GM BOTTLE TOP SCH ×2 (09:01→16:51)
[2016-10-16] MEDS: ESCITALOPRAM 10 MG TABLET PO SCH (09:02)
[2016-10-16] MEDS: clonazePAM 0.5 MG TABLET PO SCH (09:02)
--- NOTE | 2016-10-16 09:49 | Orthopedic Progress Note ---
Assessment and Plan (1) Ankle fracture, right Status: Acute Assessment and plan: Okay for weightbearing as tolerated in the cam walker boot. No further orthopedic intervention needed at this time. Follow-up with Dr. Uribe in the office upon discharge from the hospital Current Visit: Yes Orthopedics - Subjective Interval history: Patient seen and examined. No other orthopedic complaints. Tolerating her cam walker boot Exam - Constitutional Vitals: Period Temp Pulse Resp BP Sys/Puga Pulse Ox Last 24 Hr 97.0 F-99.3 F 58-79 18-22 119-154/57-84 95-98 - Expanded Right Lower Ankle exam: Present: normal inspection (CAM Walker boot in place. Good active range of motion toes. Sensations intact. Cap refill brisk.) Results - Labs CBC & BMP: 10/16/16 05:16 10/16/16 05:16 Lab Results: I have reviewed the past 24 hour labs - Diagnostic Findings Procedure: X-ray: image reviewed by me, report reviewed by me Specialty Discharge - Follow Up or Referrals Follow up with: Presley Uribe Jr., MD [Physician] - 2 Weeks (or if in swing bed need xrays done and sent to office)
--- NOTE | 2016-10-16 10:10 | Gastrointestinal Progress Note ---
<Funmilayo Wells Venkat - Last Filed: 10/16/16 10:07> Assessment and Plan (1) Elevated liver enzymes Status: Acute Assessment and plan: 10/16-LFTs trending downward. Liver biopsy remains pending at this time as well as hep C PCR. Patient to follow-up with her PCP upon discharge. Plan an addendum to follow by Dr. Diane. 10/15-No repeat labs today. For liver biopsy today. Plan and addendum to follow by Dr Diane. 10/14-bilirubin down at 4.8. For liver biopsy today. PCR pending. Plan an addendum to follow by Dr. Diane. 10/13-Recent findings of elevated LFT with findings of Hepatitis C antibodies. Long history of ETOH use without any other associated symptoms. Obtain abdominal US today. Plan and addendum to follow by Dr Diane. Current Visit: Yes Gastroenterology - PN: Subj Interval history: CC: Elevated liver enzymes Patient is seen awake and alert working with physical therapy this morning. States she did not have a good night due to up with anxiety and depression all night. Still complains of some vague abdominal pain but denies any nausea or vomiting. Hepatitis C PCR is still pending at this time. Abdomen soft, nontender. Liver biopsy is also still noted be pending this morning. Bilirubin is down at 2.9. ROS: Denies shortness of breath or chest pain Exam (Progress Note) - Constitutional Vitals: Period Temp Pulse Resp BP Sys/Puga Pulse Ox Last 24 Hr 97.0 F-99.3 F 58-79 18-22 119-154/57-84 95-98 General appearance: normal weight, no acute distress - Head Head exam: Present: normal inspection, normocephalic - Eye Eye exam: Present: other (Lids and conjunctive are unremarkable). Absent: scleral icterus - ENT ENT exam: Present: normal exam, normal oropharynx - Neck Neck exam: Present: normal inspection - Respiratory Respiratory exam: Present: clear to auscultation bilaterally. Absent: rales, rhonchi, wheezes - Cardiovascular Cardiovascular exam: Present: regular rate and rhythm. Absent: diastolic murmur , JVD, systolic murmur - GI/Abdominal GI/Abdominal exam: Present: normal bowel sounds, soft. Absent: ascites, distended, mass, organomegaly, tenderness - Extremities Exam Extremities exam: Present: normal inspection, full ROM - Back Exam Back exam: Present: normal inspection - Neurological Exam Neurological exam: Present: alert, oriented X3 - Psychiatric Psychiatric exam: Present: normal affect, normal mood - Skin Skin exam: Present: normal color, warm, dry Results - Labs CBC & BMP: 10/16/16 05:16 10/16/16 05:16 Lab Results: I have reviewed the past 24 hour labs Specialty Discharge - Follow Up or Referrals Follow up with: Presley Uribe Jr., MD [Physician] - 10/30/16 1:00 pm (or if in swing bed need xrays done and sent to office) <Dean Diane - Last Filed: 10/16/16 13:01> Exam (Progress Note) - Constitutional Vitals: Period Temp Pulse Resp BP Sys/Puga Pulse Ox Last 24 Hr 97.0 F-99.3 F 58-79 18-22 109-154/57-84 95-98 Results - Labs CBC & BMP: 10/16/16 05:16 10/16/16 05:16
[2016-10-16 11:53] VITALS: BP 109/63
--- NOTE | 2016-10-16 15:56 | Discharge Summary ---
Hospital Course - Hospital Course Hospital Course: His hospitalization included patient admitted for elevated liver enzymes has a history of chronic alcoholism and found to be hepatitis C positive. She had a biopsy that showed evidence of cirrhosis. She was evaluated by gastroenterology who recommended the patient avoids alcohol use for a period of time before treating hepatitis. It was unclear patient was going to be compliant with this plan. The rest of her hospitalization included evaluation for Thoe for her ankle fracture she was put in a walking boot and is scheduled to follow-up with orthopedic surgery in 1 week. The rest of hospitalization was unremarkable she has been afebrile the rest of her vitals are stable and she is prepared for discharge home today. - Time spent with patient Time with patient DS: Less than 30 minutes Diagnosis - Discharge Diagnosis (1) Alcoholic liver disease Status: Chronic (2) Alcohol addiction Status: Chronic (3) HCV antibody positive Status: Chronic (4) Ankle fracture, right Status: Chronic Specialty Discharge - Follow Up or Referrals Follow up with: Presley Uribe Jr., MD [Physician] - 10/30/16 1:00 pm (or if in swing bed need xrays done and sent to office) Discharge Plan - Discharge Data Disposition: Disch To Home/Self Care Condition at Discharge: Stable Discharge Diet: advance to your usual diet, other (Patient encouraged not to drink any other alcohol.) Activity: resume usual activities as tolerated Hygiene: no restrictions Contact your physician if you experience:: fever over 101 - Discharge Medications New clonazePAM TAB [KlonoPIN] 2 mg PO BID #60 tablet LORazepam TAB [Ativan Tab] 2 mg PO Q4H PRN #30 tablet PRN Reason: Agitation Nystatin Powder [Mycostatin Powder] 1 applic TOP TID applic Continue Escitalopram [Lexapro] 10 mg PO QAM - Follow Up or Referral Follow Up: Presley Uribe Jr., MD [Physician] - 10/30/16 1:00 pm (or if in swing bed need xrays done and sent to office) - Forms/Instructions Additional Discharge Instructions: Follow-up primary provider in 2 weeks. Exam - Constitutional Vitals: Period Temp Pulse Resp BP Sys/Puga Pulse Ox Last 24 Hr 97.0 F-99.3 F 58-79 18-22 109-154/57-84 95-98 General appearance: normal weight - Head Head exam: Present: normal inspection - Eye Eye exam: Present: EOMI - ENT ENT exam: Present: normal exam - Neck Neck exam: Present: normal inspection - Respiratory Respiratory exam: Present: clear to auscultation bilaterally - Cardiovascular Cardiovascular exam: Present: regular rate and rhythm - Neurological Exam Neurological exam: Present: alert, oriented X3 - Psychiatric Psychiatric exam: Present: normal affect - Skin Skin exam: Present: normal color Discharge Results Labs on day of discharge: Labs from last 24 hours 10/16/16 10/16/16 10/13/16 05:16 05:16 09:50 WBC 5.9 RBC 3.60 L Hgb 10.9 L Hct 33.4 L MCV 92.8 MCH 30 MCHC 32.6 RDW 18.6 H Plt Count 83 L MPV 12.1 H Neut % (Auto) 35.9 L Lymph % (Auto) 54.8 H [place] % (Auto) 7.5 Eos % (Auto) 0.9 Baso % (Auto) 0.7 Neut # (Auto) 2.1 Lymph # (Auto) 3.2 [place] # (Auto) 0.4 Eos # (Auto) 0.1 Baso # (Auto) 0.0 Total Counted 100 Immature Gran % 0.2 Nucleated RBC % 0.0 Immature Gran # 0.01 Segmented Neutrophils 42 L Lymphocytes 45 Monocytes 9 Eosinophils 3 Basophils 1.0 H Nucleated RBCs # 0.00 Platelet Estimate Decreased Hypochromasia 1+ Ovalocytes Slight Morphology Comment Sodium 142 Potassium 4.1 Chloride 109 H Carbon Dioxide 25 Anion Gap 12.1 BUN 9 Creatinine 0.90 GFR Calculation 70 BUN/Creatinine Ratio 10.00 Glucose 92 Calculated Osmolality 281.1 Calcium 8.1 L Total Bilirubin 2.90 H AST 48 H ALT 35 Alkaline Phosphatase 155 H Total Protein 5.8 L Albumin 2.4 L Globulin 3.4 Albumin/Globulin Ratio 0.7 L HCV RNA Quant (PCR) [id number] DS: Provider Date of admission: 10/12/16 15:52 Primary care physician: Carlos Dick Attending physician on admission: Pedro Guevara MD Consults: 10/12/16 17:16 Consult to Physician [CONS] Routine Comment: jaundice Consulting Provider: Dean Diane Person Notified: LORENA Date Notified: 10/13/16 Time Notified: 09:21 10/12/16 17:46 Consult to Dietitian [CONS] Routine Reason for Dietitian: Other 10/13/16 11:16 Consult to Physician [CONS] Routine Comment: Consulting Provider: Presley Uribe Jr. When should Consulting Provider be notified: Now Person Notified: teresa Date Notified: 10/13/16 Time Notified: 11:27 10/14/16 08:56 Consult to Case Mgmt/Social Srvs [CONS] Routine Reason for Case Mgmt/Social Srvs: Home Health 10/14/16 10:44 Consult to Physical Therapy [CONS] Routine Reason for Physical Therapy: Evaluate and Treat Consult Comment: Nonweightbearing on right. Walker or crutches Discharging clinician: Rush Thompson Jr.,
--- NOTE | 2016-10-19 14:16 | Pathology Report from [facility] ---
[facility] ACCESSION # : [id number] PATIENT NAME : Kiley Walker ORDERING DR : Ministerio Morris MD CLINICAL HX: Elevated LFTs - Hepatitis C POST-OP DX: Same SPECIMEN INFO: Liver, U/S she cut biopsy x 3 GROSS DESCRIPTION: Received in formalin labeled KILEY WALKER & LIVER are three lizzette shaped tissue fragments measuring from 1.7 x 0.1 cm to 2.0 x 0.1 cm submitted in one cassette. DIAGNOSIS FOR KILEY WALKER: LIVER BIOPSY: Micronodular cirrhosis. Hepatitis Activity Index (SHAVON)(modified Dede) Grade= 17 /18 Periportal/periseptal interface hepatitis = 4/4 Confluent necrosis = 5 /6 Lytic necrosis/ Apoptosis = 4/4 Portal Inflammation = 4 /4 Modified Dede Stage = 4/4 COLLECTED DATE: 10/15/2016 [facility] REPORT DATE: 10/16/2016 ELECTRONICALLY SIGNED BY: Jina Diaz III, M.D. 10/16/2016 - 10:59:37 [facility]
--- NOTE | 2016-10-22 13:41 | Physician Query Form ---
CLICK EDIT DOCUMENT TO SELECT QUERY ANSWER --> OK --> SIGN Tennille Cardona RN [employer] Consultant W) [phone] (f) [phone] [email or web address] PROVIDERS: Make your selection(s) from the choices in EACH section by typing an "x" and enter comments in the comment section. Please use your independent medical judgment in providing your response. This request does not imply that any particular answer is desired or expected. CLINICAL INDICATORS: (Providers should not edit this section) Based on conflicting documentation of "delirium tremens". H&P states "The patient presents to the hospital in a tremulous state consistent with early delirium tremens. She presented anxious and tremulous. The patient reports last drink on late last week. She is in the window frame for delirium tremens. We will start CIWA precautions and monitor". Progress note 10/15/16 states " alcoholic liver disease, long standing, no issues with DTs this admission". Based on the above, could you clarify the appropriate diagnosis, if significant , that supports the above abnormalities and additional evaluation, monitoring, and/or treatment rendered: ( ) Pt. treated for alcoholic liver disease with acute delirium tremens ( ) Pt. treated for alcoholic liver disease without delirium tremens ( ) Other, please specify: (x ) Clinically unable to determine COMMENTS: PLEASE ALSO DOCUMENT RESPONSE IN PROGRESS NOTES AND/OR DISCHARGE SUMMARY Use of terms such as suspected, likely, or probable (associated with a specific diagnosis that is being evaluated, monitored, or treated as if it exists) are acceptable and can be restated in the discharge summary if not ruled out. MTDD
== END 2016-10-16 17:09 | disposition home health service (06) | DRG 433 ==
LOC: EDUNIT# → EDBD → N.ED 13:40 → N.EDINP 15:52 → SUATTDRO 15:52 → N.5E 16:35
PROVIDERS: ADMIT Internal Medicine; ATTEND Internal Medicine Nephrology